=== PATIENT | male | born 1965 | race Caucasian/White ===

== ENCOUNTER 2018-03-12 10:26 | Day surgery (SDC) | payer OTHER ==
[2018-03-12] MEDS: NS 1,000 ML IV (10:30)
[2018-03-12] MEDS ORDERED: LIDOCAINE 2% INJ 100 MG/5 ML SDV (FOR ANES.) As Ordered (11:59)
[2018-03-12] MEDS ORDERED: fentaNYL 100 MCG/2 ML INJECTION (J3010) As Ordered (11:59)
[2018-03-12] MEDS ORDERED: PROPOFOL 200 MG/20 ML VIAL As Ordered ×2 (11:59)
== END 2018-03-12 13:09 | disposition home or self-care (01) ==
LOC: M OPP 10:26
DX: Z12.11 Encounter for screening for malignant neoplasm of colon (principal); D12.4 Benign neoplasm of descending colon; D12.3 Benign neoplasm of transverse colon; K64.8 Other hemorrhoids; R12 Heartburn; K29.70 Gastritis, unspecified, without bleeding; E11.9 Type 2 diabetes mellitus without complications; K21.9 Gastro-esophageal reflux disease without esophagitis; Z79.84 Long term (current) use of oral hypoglycemic drugs; Z79.899 Other long term (current) drug therapy; Z88.0 Allergy status to penicillin; Z80.0 Family history of malignant neoplasm of digestive organs
CPT/HCPCS: 45385

== ENCOUNTER → 2020-11-05 | Outpatient (CLI) | payer OTHER ==
[~2020-11-05] MED LIST: METF-838 PO; OMEP1CAP73 PO
== END ==
LOC: M LAB 14:21
PROVIDERS: ATTEND Orthopaedic Surgery
DX: M10.079 Idiopathic gout, unspecified ankle and foot (principal)

== ENCOUNTER 2021-09-30 07:12 | Day surgery (SDC) | payer OTHER ==
[~2021-09-30] VITALS: Ht 167.6 cm; Wt 88.9 kg
[~2021-09-30 07:12] MED LIST changes: +ATOR1TAB21; +NS 1,000 ML IV ONE; +VITA1CAP25
--- OUTSIDE RECORDS SUMMARY | 2021-09-30 07:16 | CCD ---
Author Author [facility] Organization [facility] Address Unknown Phone Unavailable Care Team Providers Care Health Physicist Name Role Phone Blade ARIZMENDI Unavailable Unavailable Ana MCGEE MD Unavailable Unavailable Ana MCGEE MD Unavailable Unavailable Ana MCGEE MD Unavailable Unavailable Ana MCGEE MD Unavailable Unavailable Ana MCGEE MD Unavailable Unavailable Ana MCGEE MD Unavailable Unavailable Ana MCGEE MD Unavailable Unavailable Ana MCGEE MD Unavailable Unavailable Ana MCGEE MD Unavailable Unavailable Ana MCGEE MD Unavailable Unavailable Ana MCGEE MD Unavailable Unavailable Ana MCGEE MD Unavailable Unavailable Ana MCGEE MD Unavailable Unavailable Ana MCGEE MD Unavailable Unavailable Ana MCGEE MD Unavailable Unavailable Ana MCGEE MD Unavailable Unavailable Ana MCGEE MD Unavailable Unavailable Ana MCGEE MD Unavailable Unavailable Ana CMGEE MD Unavailable Unavailable Ana MCGEE MD Unavailable Unavailable Ana MCGEE MD Unavailable Unavailable Ana MCGEE MD Unavailable Unavailable Ana MCGEE MD Unavailable Unavailable Ana MCGEE MD Unavailable Unavailable Ana MCGEE MD Unavailable Unavailable Ana MCGEE MD Unavailable Unavailable Ana MCGEE MD Unavailable Unavailable Ana MCGEE MD Unavailable Unavailable EVERARDO, S CARLY MD Unavailable Unavailable EVERARDO, S CARLY MD Unavailable Unavailable EVERARDO, S CARLY MD Unavailable Unavailable EVERARDO, S CARLY MD Unavailable Unavailable EVERARDO, S CARLY MD Unavailable Unavailable EVERARDO, S CARLY MD Unavailable Unavailable EVERARDO, S CARLY MD Unavailable Unavailable EVERARDO, S CARLY MD Unavailable Unavailable EVERARDO, S CARLY MD Unavailable Unavailable EVERARDO, S CARLY MD Unavailable Unavailable EVERARDO, S CARLY MD Unavailable Unavailable EVERARDO, S CARLY MD Unavailable Unavailable EVERARDO, S CARLY MD Unavailable Unavailable EVERARDO, S CARLY MD Unavailable Unavailable EVERARDO, S CARLY MD Unavailable Unavailable EVERARDO, S CARLY MD Unavailable Unavailable EVERARDO, S CARLY MD Unavailable Unavailable EVERARDO, S CARLY MD Unavailable Unavailable EVERARDO, S CARLY MD Unavailable Unavailable EVERARDO, S CARLY MD Unavailable Unavailable EVERARDO, S CARLY MD Unavailable Unavailable EVERARDO, S CARLY MD Unavailable Unavailable EVERARDO, S CARLY MD Unavailable Unavailable EVERARDO, S CARLY MD Unavailable Unavailable EVERARDO, S CARLY MD Unavailable Unavailable EVERARDO, S CARLY MD Unavailable Unavailable EVERARDO, S CARLY MD Unavailable Unavailable EVERARDO, S CARLY MD Unavailable Unavailable EVERARDO, S CARLY MD Unavailable Unavailable EVERARDO, S CARLY MD Unavailable Unavailable EVERARDO, S CARLY MD Unavailable Unavailable EVERARDO, S CARLY MD Unavailable Unavailable EVERARDO, S CARLY MD Unavailable Unavailable EVERARDO, S CARLY MD Unavailable Unavailable EVERARDO, S CARLY MD Unavailable Unavailable EVERARDO, S CARLY MD Unavailable Unavailable EVERARDO, S CARLY MD Unavailable Unavailable JENNIFER, E CARLY MD Unavailable Unavailable JENNIFER, E CARLY MD Unavailable Unavailable JENNIFER, E CARLY MD Unavailable Unavailable JENNIFER, E CARLY MD Unavailable Unavailable Re-disclosure Warning The records that you are about to access may contain information from federally-assisted alcohol or drug abuse programs. If such information is present, then the following federally mandated warning applies: This information has been disclosed to you from records protected by federal confidentiality rules (42 CFR part 2). The federal rules prohibit you from making any further disclosure of this information unless further disclosure is expressly permitted by the written consent of the person to whom it pertains or as otherwise permitted by 42 CFR part 2. A general authorization for the release of medical or other information is NOT sufficient for this purpose. The Federal rules restrict any use of the information to criminally investigate or prosecute any alcohol or drug abuse patient.The records that you are about to access may contain highly sensitive health information, the redisclosure of which is protected by Article 27-F of the [facility] Public Health law. If you continue you may have access to information: Regarding HIV / AIDS; Provided by facilities licensed or operated by the [facility] Office of Mental Health; or Provided by the [facility] Office for People With Developmental Disabilities. If such information is present, then the following [facility] mandated warning applies: This information has been disclosed to you from confidential records which are protected by state law. State law prohibits you from making any further disclosure of this information without the specific written consent of the person to whom it pertains, or as otherwise permitted by law. Any unauthorized further disclosure in violation of state law may result in a fine or correction sentence or both. A general authorization for the release of medical or other information is NOT sufficient authorization for further disc losure. Family History Family Member Name Family Member Gender Family Member Status Date o f Status Description Data Source(s) Unknown Unknown Problem [facility] ([facility], ) GF Dx at age 75 Encounters Encounter Providers Location Date Indications Data Source(s ) Outpatient Attender: CARLY RODRIGUEZ [facility] 02/04/2021 11:52:00 AM EDT - 02/04/2021 12:52:00 PM EDT [facility] Outpatient Attender: CARLY MCGEE MD 01/29/2021 08:26:0 0 AM T [facility] Outpatient Attender: CARLY MCGEE MD ER-LAB-PNP 01/29/2021 08:24:0 0 AM EDT [facility] Immunizations Vaccine Date Status Description Data Source(s) COVID-19 VACCINE Moderna 09/04/2021 12:00:00 AM EDT completed [facility] Vaccine Series Complete: YESThis Data wa s Submitted to [facility] [employer] COVID-19 VACCINE Pfizer 11/21/2020 12:00:00 AM EST completed [facility] Vaccine Series Complete: YESThis Data wa s Submitted to [facility] [employer]. COVID-19 VACCINE Pfizer 10/31/2020 12:00:00 AM EST completed [facility] Vaccine Series Complete: NOThis Data was Submitted to [facility] [employer]. Medications Medication Brand Name Start Date Product Form Dose Route Admi nistrative Instructions Pharmacy Instructions Status Indications Reaction Description Data Source(s) 1.479-0.188- 0.225 gram 09/25/2021 12:00:00 AM EST tablet 24 TAKE DIRECTED PER DOCTOR FOR BOWEL PREP TAKE DIRECTED PER DOCTOR FOR BOWEL PREP SOLD: 09/25/2021 [facility] 800-160 mg 09/18/2021 12:00:00 AM EST tablet 20 TAKE ONE TABLET BY MOUTH TWICE A DAY FOR 10 DAYS TAKE ONE TABLET BY MOUTH TWICE A DAY FOR 10 DAYS SOLD: 09/18/2021 [facility] Clindamycin 300 MG Oral Capsule CLINDAMYCIN HCL 07/08/2021 12:00 :00 AM EDT capsule 14 TAKE ONE CAPSULE BY MOUTH TWICE A DAY FOR 7 DAYS TAKE ONE CAPSULE BY MOUTH TWICE A DAY FOR 7 DAYS SOLD: 07/08/2021 [facility] Clindamycin 300 MG Oral Capsule CLINDAMYCIN HCL 06/27/2021 12:00 :00 AM EDT capsule 21 TAKE ONE CAPSULE BY MOUTH THREE TIMES A DAY FOR 7 DAYS TAKE ONE CAPSULE BY MOUTH THREE TIMES A DAY FOR 7 DAYS SOLD: 06/27/2021 [facility] Bisacodyl 5 MG Delayed Release Oral Tablet [Dulcolax] Dulcol ax 04/01/2021 12:00:00 AM EDT ORAL active [facility] ([facility], ) Sutab Sutab 04/01/2021 12:00:00 AM EDT active [facility] ([facility], ) 4 mg 02/28/2021 12:00:00 AM EDT tablets,dose pack 21 TAKE 6 TABLETS BY MOUTH ON THE FIRST DAY REDUCING BY 1 TABLET EACH CONSECUTIVE DAY UNTIL COMPLETED TAKE 6 TABLETS BY MOUTH ON THE FIRST DAY REDUCING BY 1 TABLET EACH CONSECUTIVE DAY UNTIL COMPLETED SOLD: 02/28/2021 [facility] tizanidine 2 MG Oral Tablet TIZANIDINE HCL 02/26/2021 12:00:00 AM EDT tablet 60 TAKE ONE TABLET BY MOUTH THREE TIMES A DAY TAKE ONE TA BLET BY MOUTH THREE TIMES A DAY SOLD: 02/26/2021 [facility] 300 mg 02/26/2021 12:00:00 AM EDT capsule 22 TAKE 2 CAPSULES BY MOUTH FOR THE INITIAL LOADING DOSE THEN 1 CAPSULE THREE TIMES A DAY THEREAFTER FOR 7 DAYS TAKE 2 CAPSULES BY MOUTH FOR THE INITIAL LOADING DOSE THEN 1 CAPSULE THREE TIMES A DAY THEREAFTER FOR 7 DAYS SOLD: 02/26/2021 [facility] 4 mg 11/05/2020 12:00:00 AM EST tablets,dose pack 21 TAKE BY MOUTH DIRECTED TAKE BY MOUTH DIRECTED SOLD: 11/05/2020 [facility] Insurance Providers Payer name Policy type / Coverage type Policy ID Covered libertarian ID Covered libertarian's relationship to lin Policy Lin Plan Information [facility] [employer] [id number] SP [id number] [employer] CARLY NATARAJAN 18 CARLY NATARAJAN [facility] [id number] SP [id number] [facility] (2018) Health Maintenance Organization (HMO) [id number] Self [id number] Problems, Conditions, and Diagnoses Code Display Name Description Problem Type Effective Dates Data Source(s) Z0184 Encounter for antibody response examinat ion Encounter for antibody response examination Diagnosis 02/04/2021 11:52:00 AM EDT [facility] Z03.818 Encounter for observation fo r suspected exposure to other biological agents ruled out ENCNTR FOR OBS FOR SUSP EXPSR TO OTH BIO Diagnosis 01/29/2021 08:24:00 AM EDT [facility] Surgeries/Procedures No Information Results ID Date Data Source [id number] 02/05/2021 06:58:00 AM EDT [facility] Name Value Range Interpretation Code Description Data Ann-Marie rce(s) Supporting Document(s) Varicella zoster virus IgG Ab [Units/volume] in Serum by Imm unoassay 860 index Immune >165 [facility] Negative <135 Equivocal 135 - 165 Positive >165 A positive result generally indicates exposure to the pathogen or administration of specific immunoglobulins, but it is not indication of active infection or stage of disease. ID Date Data Source [id number] 02/05/2021 06:58:00 AM EDT [facility] Name Value Range Interpretation Code Description Data Ann-Marie rce(s) Supporting Document(s) Measles virus IgG Ab [Units/volume] in Serum by Immunoassay <13.5 AU/mL Immune >16.4 L [facility] Negative <13.5 Equivocal 13.5 - 16.4 Positive >16.4 Presence of antibodies to Rubeola is presumptive evidence of immunity except when acute infection is suspected. ID Date Data Source [id number] 02/05/2021 06:58:00 AM EDT [facility] Name Value Range Interpretation Code Description Data Ann-Marie rce(s) Supporting Document(s) Mumps virus IgG Ab [Units/volume] in Serum by Immunoassay 24 .0 AU/mL Immune >10.9 [facility] Negative <9.0 Equivocal 9.0 - 10.9 Positive >10.9 A positive result generally indicates past exposure to Mumps virus or previous vaccination. ID Date Data Source [id number] 02/04/2021 12:45:00 PM EDT [facility] Name Value Range Interpretation Code Description Data Ann-Marie rce(s) Supporting Document(s) Rubella virus IgG Ab [Units/volume] in Serum 158.700 IU/ml [facility] REACTI VE \\BLDo\\Rubella Immunity Interpretation\\BLDx\\ Non-reactive: <10 IU/mL Reactive: greater than or equal to 10 IU/mL A reactive result is presumptive evidence of immunity to Rubella, except when acute infection is suspected. ID Date Data Source [id number] 01/29/2021 08:55:00 AM EDT [facility] Name Value Range Interpretation Code Description Data Ann-Marie rce(s) Supporting Document(s) COVID-19, NOAH NEGATIVE NEGATIVE N [facility] Methodology: Nucleic Acid AmplificationN egative results should be treated as presumptive and, ifinconsistent with clinical signs and symptoms or necessaryfor patient management, should be tested with differentauthorized or cleared molecular tests. Negative results donot preclude SARS-CoV-2 infection and should not be used asthe sole basis for patient management decisions. Negativeresults should be considered in the context of a patient'srecent exposures history and the presence of clinical signsand symptoms consistent with COVID-19.The ID NOW COVID-19 test is only for use under the Food andDrug Administration's Emergency Use Authorization. ID Date Data Source [id number] 01/29/2021 12:00:00 AM EDT [facility] Name Value Range Interpretation Code Description Data Ann-Marie rce(s) Supporting Document(s) SARS-CoV2 Rapid PCR Negative [facility] This lab was ordered by [facility] and reported by [facility]. Procedure Social History No Information Vital Signs ID Date Data Source UNK Name Value Range Interpretation Code Description Data Source(s) Systolic blood pressure 122 mm[Hg] 122 mm[Hg] [facility] ([facility]) Diastolic blood pressure 82 mm[Hg] 82 mm[Hg] [facility] ([facility]) Body height 66 [in_i] 66 [in_i] [facility] ([facility]) 5'6" Body weight 193.00 [lb_av] 193.00 [lb_av] [facility] ([facility]) Body mass index (BMI) [Ratio] 31.1 kg/m2 31.1 k g/m2 [facility] ([facility]) [place] body weight 142 [lb_av] 142 [lb_av] [facility] ([facility]) Body weight 87.545 kg 87.545 kg [facility] ([facility]) Body surface area Derived from formula 1.97 m2 1.97 m2 [facility] ([facility])
[2021-09-30] MEDS ORDERED: propofoL 200 MG/20 ML VIAL As Ordered ONE ×2 (08:00→08:16)
--- NOTE | 2021-09-30 08:31 | ROOR ---
Patient Name: Hugo Edwards Procedure Date: 09/30/2021 8:02 AM Date of : 1965 Age: 55 Room: [facility] Gender: Male Note Status: Finalized Procedure: Colonoscopy Indications: High risk colon cancer surveillance: Personal history of colonic polyps, Last colonoscopy: March 2018 Providers: Gerber Hull MD Referring MD: FELIX WASHINGTON MD Requesting Provider: Medicines: Monitored Anesthesia Care Complications: No immediate complications. Procedure: Pre-Anesthesia Assessment: - The heart rate, respiratory rate, oxygen saturations, blood pressure, adequacy of pulmonary ventilation, and response to care were monitored throughout the procedure. The Colonoscope was introduced through the anus and advanced to the terminal ileum, with identification of the appendiceal orifice and IC valve. The colonoscopy was performed without difficulty. The patient tolerated the procedure well. The quality of the bowel preparation was excellent. Findings: The perianal and digital rectal examinations were normal. Five sessile polyps were found in the sigmoid colon, descending colon and splenic flexure. The polyps were diminutive in size. These polyps were removed with a cold snare. Resection and retrieval were complete. Mild sigmoid diverticulosis and small internal hemorrhoids. The exam was otherwise without abnormality on direct and retroflexion views. Impression: - Five diminutive (< 2-3 mm) polyps in the sigmoid colon, in the descending colon and at the splenic flexure, removed with a cold snare. Resected and retrieved. - Mild sigmoid diverticulosis and small internal hemorrhoids. - The examination was otherwise normal on direct and retroflexion views. Recommendation: - Await pathology results. - Repeat colonoscopy in 3 - 5 years for surveillance based on pathology results. - If the pathology report reveals adenomatous tissue, then repeat the colonoscopy for surveillance in 3 years. - If the pathology report indicates hyperplastic polyp, then repeat colonoscopy for surveillance in 5 years. - Telephone endoscopist for pathology results in 2 weeks. Procedure Code(s): --- Professional --- 87384, Colonoscopy, flexible; with removal of tumor(s), polyp(s), or other lesion(s) by snare technique Diagnosis Code(s): --- Professional --- K63.5, Polyp of colon Z86.010, Personal history of colonic polyps CPT copyright 2019 [employer]. All rights reserved. The codes documented in this report are preliminary and upon certified professional coder review may be revised to meet current compliance requirements. Gerber Hull MD Gerber Hull MD 09/30/2021 8:30:37 AM Electronically signed by Gerber Hull MD Number of Addenda: 0 Note Initiated On: 09/30/2021 8:02 AM Estimated Blood Loss: Estimated blood loss: none.
[2021-09-30 08:45] VITALS: BP 134/84
== END 2021-09-30 09:05 | disposition home or self-care (01) ==
LOC: M OPP 07:12
PROVIDERS: ATTEND Internal Medicine Gastroenterology
DX: D12.6 Benign neoplasm of colon, unspecified (principal); K64.8 Other hemorrhoids; Z86.010 Personal history of colon polyps; E11.9 Type 2 diabetes mellitus without complications; E78.5 Hyperlipidemia, unspecified; Z88.0 Allergy status to penicillin; Z79.899 Other long term (current) drug therapy